=== PATIENT | female | born 1975 | race Caucasian/White ===

== ENCOUNTER → 2017-11-21 | Outpatient (CLI) | payer BC ==
[~2017-11-21] MED LIST: CEPHALEXIN500 M1 PO; NORCO 325 MG-51 TAB PO; PAXIL PO
== END ==
LOC: MC.RAD 11-20 10:20
DX: Z12.31 Encounter for screening mammogram for malignant neoplasm of breast (principal)

== ENCOUNTER 2019-08-14 15:30 | Outpatient (CLI) | payer OTHER ==
[~2019-08-14] VITALS: Ht 165.1 cm; Wt 95.4 kg
[2019-08-14] MEDS ORDERED: ZANTAC 300300 MG PO (16:34)
[2019-08-14] MEDS ORDERED: PRISTIQ 50 MG T50 MG PO (16:34)
[2019-08-14] MEDS ORDERED: ZYRTEC 10MG10 MG PO (16:35)
[2019-08-14] MEDS ORDERED: ORTHO TRI-CYCLE1 TAB PO (16:36)
[2019-08-14] MEDS ORDERED: SINGULAIR 110 MG/TAB PO (16:36)
[2019-08-14 16:42] VITALS: BP 115/79; PULSE 73; TEMP 97.7
--- NOTE | 2019-08-14 17:15 | NUR ---
Pt left her epi pen next to chair in [place].Called pt and she requested we dispose of it.Per pt report it expires in august and she already picked up another one.Spoke with [facility],Pharmacy.Per instruction of pharmacisit,disposed of in sharps container.
== END 2019-08-14 16:59 | disposition home or self-care (01) ==
LOC: EUO 15:30
DX: Z01.89 Encounter for other specified special examinations (principal)
CPT/HCPCS: J2357

== ENCOUNTER 2019-09-12 15:56 | Outpatient (CLI) | payer OTHER ==
[~2019-09-12] VITALS: Ht 165.1 cm; Wt 98.0 kg
[~2019-09-12 15:56] MED LIST changes: +ORTHO TRI-CYCLE1 TAB PO; +PRISTIQ 50 MG T50 MG PO; +SINGULAIR 110 MG/TAB PO; +ZANTAC 300300 MG PO; +ZYRTEC 10MG10 MG PO
[2019-09-12 16:27] VITALS: BP 116/68; PULSE 77; TEMP 98
== END 2019-09-12 16:51 | disposition home or self-care (01) ==
LOC: EUO 15:56
DX: Z79.899 Other long term (current) drug therapy (principal)
CPT/HCPCS: J2357

== ENCOUNTER 2019-10-10 16:02 | Outpatient (CLI) | payer OTHER ==
[~2019-10-10] VITALS: Ht 165.1 cm; Wt 99.1 kg
[2019-10-10 16:40] VITALS: BP 128/85; PULSE 70; TEMP 98.3
== END 2019-10-10 17:17 | disposition home or self-care (01) ==
LOC: EUO 16:02
DX: Z79.899 Other long term (current) drug therapy (principal)
CPT/HCPCS: J2357

== ENCOUNTER → 2019-10-31 | Outpatient (CLI) | payer OTHER | LOC: MC.RAD 11:21 | DX: Z12.31 Encounter for screening mammogram for malignant neoplasm of breast (principal) ==

== ENCOUNTER 2019-11-08 15:55 | Outpatient (CLI) | payer OTHER ==
[~2019-11-08] VITALS: Ht 165.1 cm; Wt 97.7 kg
[2019-11-08 16:38] VITALS: BP 120/83; PULSE 60; TEMP 97.8
--- NOTE | 2019-11-08 16:47 | NUR ---
Pt stayed for 30 minutes prior to shot. no reaction reported
== END 2019-11-08 16:48 | disposition home or self-care (01) ==
LOC: EUO 15:55
DX: Z79.51 Long term (current) use of inhaled steroids (principal)
CPT/HCPCS: J2357

== ENCOUNTER 2019-12-10 15:08 | Outpatient (CLI) | payer OTHER ==
[~2019-12-10] VITALS: Ht 165.1 cm; Wt 98.1 kg
[2019-12-10 15:33] VITALS: BP 119/81; PULSE 73; TEMP 97.8
== END 2019-12-10 15:58 | disposition home or self-care (01) ==
LOC: EUO 15:08
DX: Z79.51 Long term (current) use of inhaled steroids (principal)
CPT/HCPCS: J2357

== ENCOUNTER 2020-01-07 15:05 | Outpatient (CLI) | payer OTHER ==
[2020-01-07 16:03] VITALS: BP 149/91; PULSE 76; TEMP 98.4
== END 2020-01-07 16:06 | disposition home or self-care (01) ==
LOC: EUO 15:05
DX: Z79.51 Long term (current) use of inhaled steroids (principal)
CPT/HCPCS: J2357

== ENCOUNTER 2020-02-04 15:08 | Outpatient (CLI) | payer OTHER ==
[~2020-02-04] VITALS: Ht 165.1 cm; Wt 99.2 kg
[2020-02-04 15:52] VITALS: BP 109/73; PULSE 84; TEMP 98.5
== END 2020-02-04 18:36 | disposition home or self-care (01) ==
LOC: EUO 15:08
DX: Z51.81 Encounter for therapeutic drug level monitoring (principal); Z79.51 Long term (current) use of inhaled steroids
CPT/HCPCS: J2357

== ENCOUNTER 2020-03-06 15:58 | Outpatient (CLI) | payer OTHER ==
[~2020-03-06] VITALS: Ht 165.1 cm; Wt 98.0 kg
[2020-03-06 16:13] VITALS: BP 140/89; PULSE 87; TEMP 97.9
== END 2020-03-06 17:00 | disposition home or self-care (01) ==
LOC: EUO 15:58
DX: Z79.899 Other long term (current) drug therapy (principal)
CPT/HCPCS: J2357

== ENCOUNTER 2020-04-03 16:01 | Outpatient (CLI) | payer OTHER ==
[~2020-04-03] VITALS: Ht 165.1 cm; Wt 99.5 kg
[2020-04-03 16:21] VITALS: BP 125/74; PULSE 72; TEMP 98.5
== END 2020-04-07 08:34 | disposition home or self-care (01) ==
LOC: EUO 16:01
DX: Z79.899 Other long term (current) drug therapy (principal)
CPT/HCPCS: J2357

== ENCOUNTER → 2020-05-01 | Outpatient (CLI) | payer OTHER ==
[2020-05-01 16:00] VITALS: BP 117/78; PULSE 70; TEMP 98.1
== END ==
LOC: EUO 16:00
DX: Z01.89 Encounter for other specified special examinations (principal)
CPT/HCPCS: J2357

== ENCOUNTER 2020-06-10 15:57 | Outpatient (CLI) | payer OTHER ==
[~2020-06-10] VITALS: Ht 165.1 cm; Wt 99.2 kg
[2020-06-10 16:24] VITALS: BP 111/73; PULSE 81; TEMP 98.2
== END 2020-06-10 16:42 | disposition home or self-care (01) ==
LOC: EUO 15:57
DX: Z01.89 Encounter for other specified special examinations (principal)
CPT/HCPCS: J2357

== ENCOUNTER 2020-07-08 15:56 | Outpatient (CLI) | payer OTHER ==
[~2020-07-08] VITALS: Ht 165.1 cm; Wt 98.0 kg
[2020-07-08 16:27] VITALS: BP 126/72; PULSE 69; TEMP 98
== END 2020-07-08 16:28 | disposition home or self-care (01) ==
LOC: EUO 15:56
DX: Z51.81 Encounter for therapeutic drug level monitoring (principal); Z79.899 Other long term (current) drug therapy
CPT/HCPCS: J2357

== ENCOUNTER 2020-08-07 15:58 | Outpatient (CLI) | payer OTHER ==
[~2020-08-07] VITALS: Ht 165.1 cm; Wt 102.0 kg
[2020-08-07 16:30] VITALS: BP 124/72; PULSE 65; TEMP 98.3
== END 2020-08-07 17:09 | disposition home or self-care (01) ==
LOC: EUO 15:58
DX: Z79.899 Other long term (current) drug therapy (principal)
CPT/HCPCS: J2357

== ENCOUNTER 2020-10-23 16:00 | Outpatient (CLI) | payer OTHER ==
[~2020-10-23] VITALS: Ht 165.1 cm; Wt 102.0 kg
[2020-10-23 16:32] VITALS: BP 117/83; PULSE 81; TEMP 97.8
== END 2020-10-23 17:00 | disposition home or self-care (01) ==
LOC: EUO 16:00
DX: Z79.899 Other long term (current) drug therapy (principal)
CPT/HCPCS: J2357

== ENCOUNTER 2020-11-20 15:57 | Outpatient (CLI) | payer OTHER ==
[~2020-11-20] VITALS: Ht 165.1 cm; Wt 104.0 kg
[2020-11-20 16:35] VITALS: BP 130/82; PULSE 84; TEMP 98.2
== END 2020-11-20 17:11 | disposition home or self-care (01) ==
LOC: EUO 15:57
DX: Z79.899 Other long term (current) drug therapy (principal)
CPT/HCPCS: J2357

== ENCOUNTER 2020-12-18 15:55 | Outpatient (CLI) | payer OTHER ==
[~2020-12-18] VITALS: Ht 165.1 cm; Wt 105.2 kg
[2020-12-18 16:16] VITALS: BP 110/77; PULSE 74; TEMP 97.8
== END 2020-12-18 16:17 | disposition home or self-care (01) ==
LOC: EUO 15:55
DX: Z79.899 Other long term (current) drug therapy (principal)
CPT/HCPCS: J2357

== ENCOUNTER 2021-01-15 15:59 | Outpatient (CLI) | payer OTHER ==
[2021-01-15 16:37] VITALS: BP 113/71; PULSE 85; TEMP 98.3
== END 2021-01-15 17:24 | disposition home or self-care (01) ==
LOC: EUO 15:59
DX: Z79.899 Other long term (current) drug therapy (principal)
CPT/HCPCS: J2357

== ENCOUNTER 2021-03-31 15:55 | Outpatient (CLI) | payer OTHER ==
[~2021-03-31] VITALS: Ht 165.1 cm; Wt 104.0 kg
[2021-03-31 16:11] VITALS: BP 119/79; PULSE 71; TEMP 98.5
== END 2021-03-31 16:42 | disposition home or self-care (01) ==
LOC: EUO 15:55
DX: Z79.899 Other long term (current) drug therapy (principal)
CPT/HCPCS: J2357

== ENCOUNTER 2021-04-30 15:57 | Outpatient (CLI) | payer OTHER ==
[~2021-04-30] VITALS: Ht 165.1 cm; Wt 105.1 kg
[2021-04-30 16:41] VITALS: BP 114/74; PULSE 83; TEMP 97.8
== END 2021-04-30 19:11 | disposition home or self-care (01) ==
LOC: EUO 15:57
DX: Z79.899 Other long term (current) drug therapy (principal)
CPT/HCPCS: J2357

== ENCOUNTER 2021-05-31 13:23 | Outpatient (CLI) | payer OTHER ==
[~2021-05-31] VITALS: Ht 165.1 cm; Wt 99.0 kg
[2021-05-31 13:54] VITALS: BP 116/78; PULSE 63; TEMP 98.2
== END 2021-05-31 14:05 ==
LOC: EUO 13:23
DX: Z79.899 Other long term (current) drug therapy (principal)
CPT/HCPCS: J2357

== ENCOUNTER 2021-07-02 15:55 | Outpatient (CLI) | payer OTHER ==
[2021-07-02 16:24] VITALS: BP 127/86; PULSE 74; TEMP 98.4
== END 2021-07-02 18:54 | disposition home or self-care (01) ==
LOC: EUO 15:55
DX: Z79.899 Other long term (current) drug therapy (principal)
CPT/HCPCS: J2357

== ENCOUNTER 2021-07-30 15:20 | Outpatient (CLI) | payer BC ==
[~2021-07-30] VITALS: Ht 165.1 cm; Wt 106.5 kg
[2021-07-30] MEDS ORDERED: XOLAIR150 MG/1 M SQ (16:15)
[2021-07-30 16:17] VITALS: BP 113/76; PULSE 76; TEMP 98.1
== END 2021-07-30 16:55 | disposition home or self-care (01) ==
LOC: EUO 15:20
DX: Z79.899 Other long term (current) drug therapy (principal)
CPT/HCPCS: J2357

== ENCOUNTER 2021-09-17 16:03 | Outpatient (CLI) | payer BC ==
[~2021-09-17] VITALS: Ht 165.1 cm; Wt 107.7 kg
[~2021-09-17 16:03] MED LIST changes: +XOLAIR150 MG/1 M SQ
[2021-09-17 16:32] VITALS: BP 128/90; PULSE 74; TEMP 98.1
== END 2021-09-17 18:08 | disposition home or self-care (01) ==
LOC: EUO 16:03
DX: Z79.899 Other long term (current) drug therapy (principal)
CPT/HCPCS: J2357

== ENCOUNTER 2021-12-10 15:57 | Outpatient (CLI) | payer BC ==
[~2021-12-10] VITALS: Ht 165.1 cm; Wt 106.0 kg
[2021-12-10 16:40] VITALS: BP 111/77; PULSE 78; TEMP 97.9
== END 2021-12-10 16:48 | disposition home or self-care (01) ==
LOC: EUO 15:57
DX: Z51.81 Encounter for therapeutic drug level monitoring (principal)
CPT/HCPCS: J2357

== ENCOUNTER 2021-12-15 07:01 | Day surgery (SDC) | payer BC ==
[~2021-12-15] VITALS: Ht 165.1 cm; Wt 105.8 kg
[2021-12-15 07:17] VITALS: BP 118/73; PULSE 72; TEMP 97.7
[2021-12-15 08:35] VITALS: BP 116/76; PULSE 102; TEMP 97.3
--- NOTE | 2021-12-15 08:35 | NUR ---
The patient arrived back to [place] [facility] from the endoscopy suite at this time. The patient appears drowsy but arouses easily to her name. The patient ambulated from the cart to the recliner in her room with the stand by assistance of two nurses and appeared to tolerate the activity well. Post procedure vital signs were started at this time. Call light is within reach. at bedside. Warm blanket provided. Denies any further needs at this time.
[2021-12-15 08:50] VITALS: BP 106/72; PULSE 62
--- NOTE | 2021-12-15 08:50 | NUR ---
Dr. Carmona is at the patient's bedside to discuss the findings of the procedure with the patient and her at this time.
[2021-12-15 09:05] VITALS: BP 115/74; PULSE 70
--- NOTE | 2021-12-15 09:05 | NUR ---
The patient appears more alert at this time. She agrees to try some water. Vital signs appear stable. remains at her bedside.
[2021-12-15 09:20] VITALS: BP 114/84; PULSE 62
--- NOTE | 2021-12-15 09:20 | NUR ---
Discharge instructions were reviewed with the patient and her at this time. They both verbalized understanding and have no questions for the nurse at this time. The patient's IV to her right hand was removed and a pressure dressing was applied to the site. The nurse instructed the patient to get dressed and notify the staff when she is ready to be escorted out.
--- NOTE | 2021-12-15 09:35 | NUR ---
The patient was escorted out via wheelchair to a private vehicle by MICHAEL Weems. The patient's belonigngs and discharge paperwork were sent with her. The patient's is present to drive her home.
== END 2021-12-15 09:35 | disposition home or self-care (01) ==
LOC: SDCO 07:01
DX: Z12.11 Encounter for screening for malignant neoplasm of colon (principal); D12.2 Benign neoplasm of ascending colon; D12.5 Benign neoplasm of sigmoid colon; K62.89 Other specified diseases of anus and rectum; K63.5 Polyp of colon; K57.30 Diverticulosis of large intestine without perforation or abscess without bleeding; Z87.891 Personal history of nicotine dependence; Z86.16 Personal history of COVID-19
CPT/HCPCS: J2704; J3010; J7120

== ENCOUNTER 2022-01-07 15:57 | Outpatient (CLI) | payer BC ==
[~2022-01-07] VITALS: Ht 165.1 cm; Wt 106.2 kg
[2022-01-07 16:20] VITALS: BP 118/74; PULSE 64; TEMP 98
== END 2022-01-07 17:10 | disposition home or self-care (01) ==
LOC: EUO 15:57
DX: Z79.899 Other long term (current) drug therapy (principal)

== ENCOUNTER 2022-02-11 16:37 | Outpatient (CLI) | payer BC ==
[2022-02-11 16:53] VITALS: BP 117/82; PULSE 83; TEMP 97.8
--- NOTE | 2022-02-11 16:59 | NUR ---
Pt remained in observation for 15 minutes after injection, pt declines staying any longer. Pt tolerated injections without complication at time of discharge. New appt made for next injection.
== END 2022-02-11 16:55 | disposition home or self-care (01) ==
LOC: EUO 16:37
DX: Z51.81 Encounter for therapeutic drug level monitoring (principal)

== ENCOUNTER 2022-03-11 15:58 | Outpatient (CLI) | payer BC ==
[~2022-03-11] VITALS: Ht 165.1 cm; Wt 109.3 kg
[2022-03-11 16:15] VITALS: BP 112/75; PULSE 82; TEMP 98.6
== END 2022-03-11 17:56 | disposition home or self-care (01) ==
LOC: EUO 15:58
DX: Z79.899 Other long term (current) drug therapy (principal)

== ENCOUNTER 2022-04-25 12:59 | Outpatient (CLI) | payer BC ==
[~2022-04-25] VITALS: Ht 165.1 cm; Wt 109.5 kg
[2022-04-25 13:27] VITALS: BP 118/79; PULSE 84; TEMP 98
== END 2022-04-25 13:27 ==
LOC: EUO 12:59
DX: Z51.81 Encounter for therapeutic drug level monitoring (principal)
CPT/HCPCS: J2357

== ENCOUNTER 2022-10-24 09:36 | Outpatient (CLI) | payer BC ==
[~2022-10-24] VITALS: Ht 165.1 cm; Wt 108.1 kg
[2022-10-24 09:58] VITALS: BP 121/80; PULSE 70; TEMP 97.9
--- NOTE | 2022-10-24 10:15 | NUR ---
Pt tolerated injections without issue. She exits dept with steady gait.
== END 2022-10-24 10:15 | disposition home or self-care (01) ==
LOC: EUO 09:36
DX: Z79.899 Other long term (current) drug therapy (principal)
CPT/HCPCS: J2357

== ENCOUNTER 2022-11-23 21:15 | Emergency (ER) | payer BC ==
[~2022-11-23] VITALS: Ht 165.1 cm; Wt 109.1 kg
[2022-11-23 21:28] VITALS: TEMP 98.6
[2022-11-23 21:55] LABS: BASO % 0.2 % (0.0-2.0); EOS % 0.3 % (0.0-4.0); GRAN # 11.8 K/mm3 (1.4-6.5); GRAN % 82.6 % (42.2-75.2); HEMATOCRIT 40.2 % (37.0-47.0); HEMOGLOBIN 13.4 g/dl (12.5-16.0); LYMPH # 1.3 K/mm3 (1.2-3.4); LYMPH % 9.1 % (20.0-51.0); MEAN CELL VOLUME 95 fl (80.0-100.0); MEAN CORPUSCULAR HEMOGLOBIN 32 pg (27-31); MEAN CORPUSCULAR HGB CONC 33 g/dl (33.0-37.0); MEAN PLATELET VOLUME 10.3 fl (7.4-10.4); MONO # 1.1 K/mm3 (0.1-0.6); MONO % 7.4 % (1.7-9.3); PLATELET COUNT 239 K/mm3 (130-400); RED BLOOD COUNT 4.22 M/mm3 (4.10-5.30)
[2022-11-23 22:04] LABS: COLLECTION METHOD CLEAN CATCH
[2022-11-23 22:10] LABS: URINE APPEARANCE Clear (CLEAR/HAZY); URINE COLOR Amber (YELLOW)
[2022-11-23 22:12] LABS: PH 8.5 (5.0-8.5); URINE BLOOD 3+ (NEGATIVE); URINE GLUCOSE Negative (NEGATIVE); URINE KETONE TRACE (NEGATIVE); URINE NITRATE Negative (NEGATIVE); URINE PROTEIN(semi-quant) 2+ (NEGATIVE)
[2022-11-23 22:15] LABS: ALBUMIN 3.7 gm/dL (3.5-5.0); BILIRUBIN,TOTAL 0.7 mg/dL (0.2-1.2); CALCIUM 8.4 mg/dL (8.4-10.2); CREATININE, serum 0.77 mg/dL (0.57-1.11); POTASSIUM 3.5 mmol/L (3.5-4.5); TOTAL PROTEIN 6.7 gm/dL (6.2-8.1)
[2022-11-23 22:26] LABS: MUCOUS Present (NOT PRESENT); SQUAMOUS EPITHELIAL 0-2 /hpf (0-10); URINE BACTERIA None Seen /hpf (NONE SEEN); URINE RBC 20-50 /hpf (0-2)
[2022-11-24] MEDS ORDERED: CIPRO 500MG TA500 MG PO (00:17)
[2022-11-24] MEDS ORDERED: FLAGYL500 MG PO (00:17)
[2022-11-24] MEDS ORDERED: ZOFRAN ODT4 MG PO (00:17)
[2022-11-24 00:35] VITALS: BP 114/67; PULSE 68
== END 2022-11-24 00:35 | disposition home or self-care (01) ==
LOC: COL.ER 21:15
PROVIDERS: Nurse Practitioner Primary Care
DX: K57.32 Diverticulitis of large intestine without perforation or abscess without bleeding (principal); Z88.0 Allergy status to penicillin; Z88.2 Allergy status to sulfonamides
CPT/HCPCS: J1885; J2405; J7120; Q9967

== ENCOUNTER 2023-05-23 15:56 | Outpatient (CLI) | payer BC ==
[~2023-05-23] VITALS: Ht 165.1 cm; Wt 100.8 kg
[~2023-05-23 15:56] MED LIST changes: +CIPRO 500MG TA500 MG PO; +FLAGYL500 MG PO; -PRISTIQ 50 MG T50 MG PO; +PRISTIQ100 MG PO; +ZOFRAN ODT4 MG PO
[2023-05-23 16:12] VITALS: BP 112/76; PULSE 77; TEMP 98.4
--- NOTE | 2023-05-23 16:30 | NUR ---
Pt tolerated xolair without issue. She exits dept with steady gait, free of complaints at discharge.
== END 2023-05-23 16:30 | disposition home or self-care (01) ==
LOC: EUO 15:56
DX: Z51.81 Encounter for therapeutic drug level monitoring (principal)
CPT/HCPCS: J2357